=== PATIENT | female | born 1970 | race Two or more races ===

== ENCOUNTER 2017-02-16 12:58 | Observation (INO) | payer MEDICAID ==
[~2017-02-16] VITALS: Ht 154.9 cm; Wt 63.5 kg
[2017-02-16] MEDS ORDERED: KETOROLAC TROMETH 60MG/2ML VIAL IM ONE (16:00)
[2017-02-16] MEDS ORDERED: TETANUS-DIPTH-ACEL PERTUSSIS 0.5ML SYRG IM ONE (16:00)
[2017-02-16] MEDS ORDERED: SODIUM CHLORIDE 0.9% 1,000 ML IVB ONE (16:56)
[2017-02-16 19:49] VITALS: BP 119/75
== END 2017-02-16 20:03 | disposition short-term general hospital (02) | DRG 341 ==
LOC: ER 13:11 → OVERFLOW 16:57 → ER 17:03
PROVIDERS: ADMIT Family Medicine; ATTEND Family Medicine
DX: S32.592A Other specified fracture of left pubis, initial encounter for closed fracture (principal); S09.90XA Unspecified injury of head, initial encounter; S40.022A Contusion of left upper arm, initial encounter; V86.59XA Driver of other special all-terrain or other off-road motor vehicle injured in nontraffic accident, initial encounter; Y93.89 Activity, other specified; Y92.89 Other specified places as the place of occurrence of the external cause; Y99.8 Other external cause status; Z82.49 Family history of ischemic heart disease and other diseases of the circulatory system
CPT/HCPCS: 70450; 71010; 72192; 90471; 90715; 96372; 99285; G0378; J1885; J7030